=== PATIENT | male | born 1950 | race Caucasian/White ===

== ENCOUNTER 2017-06-16 15:58 | Emergency (ER) | payer MEDICARE, OTHER ==
[~2017-06-16] VITALS: Ht 177.8 cm; Wt 64.9 kg
--- NOTE | 2017-06-16 16:10 | NUR ---
dr elizabeth at bedside for eval.
--- NOTE | 2017-06-16 16:19 | NUR ---
iv line started blood drawn and sent to lab.
--- NOTE | 2017-06-16 16:23 | NUR ---
pt to radiology for abdominal ct scan via [facility].
[2017-06-16] MEDS ORDERED: LORAZEPAM INJ 2 MG/ML VIAL IV ONE (16:30)
[2017-06-16] MEDS ORDERED: LORAZEPAM INJ 2 MG/ML VIAL ONE (16:33)
[2017-06-16 16:38] LABS: BASOPHILS % (AUTO) 0.2 % (0.0-2.0); EOSINOPHILS # (AUTO) 0.1 /CMM (0.0-0.7); EOSINOPHILS % (AUTO) 1.7 % (0.0-6.0); HEMATOCRIT 42 % (39-51); HEMOGLOBIN 14.3 g/dL (13.5-17.5); LYMPHOCYTES # (AUTO) 2.3 /CMM (0.8-4.8); LYMPHOCYTES % (AUTO) 30.6 % (20.0-44.0); MEAN CORPUSCULAR HEMOGLOBIN 30 PG (26.0-33.0); MEAN CORPUSCULAR HGB CONC 34 g/dl (31.0-36.0); MEAN CORPUSCULAR VOLUME 90 fL (80-96); MONOCYTES # (AUTO) 0.4 /CMM (0.1-1.30); MONOCYTES % (AUTO) 5.7 % (2.0-12.0); NEUTROPHILS # (AUTO) 4.6 /CMM (1.8-8.9); NEUTROPHILS % (AUTO) 61.8 % (43.0-81.0); PLATELET COUNT (AUTO) 152 /CMM (150-450); RDW COEFFICIENT OF VARIATION 13.5 (11.5-15.0); RED BLOOD CELL COUNT(AUTO) 4.74 MIL/uL (4.5-6.0); WHITE BLOOD COUNT (AUTO) 7.5 K/uL (4.3-11.0)
[2017-06-16 16:53] LABS: CALCIUM, SERUM 9.6 mg/dL (8.5-10.1); CREATININE 0.8 mg/dL (0.6-1.3); POTASSIUM 4.1 mmol/L (3.5-5.1)
[2017-06-16 16:59] LABS: ALBUMIN 4.2 g/dL (3.4-5.0); BILIRUBIN,DIRECT 0.1 mg/dL (0.0-0.2); BILIRUBIN,TOTAL 0.3 mg/dL (0.2-1.0); TOTAL PROTEIN, SERUM 7.6 g/dL (6.4-8.2)
[2017-06-16] MEDS ORDERED: HYDROMORPHONE INJ 2 MG/ML DISP.SYRIN ONE (17:00)
[2017-06-16] MEDS ORDERED: HYDROMORPHONE 1 MG/1 ML DISP.SYRIN IV ONE (17:00)
[2017-06-16 17:30] LABS: APPEARANCE,URINE Clear (CLEAR); BILIRUBIN,URINE Negative (NEGATIVE); BLOOD, URINE Moderate Ery/uL (NEGATIVE); COLOR,URINE Yellow (YELLOW); KETONES,URINE Trace (NEGATIVE); LEUKOCYTE ESTERASE ,URINE Trace (NEGATIVE); NITRITE, URINE Negative (NEGATIVE); PROTEIN,URINE Negative (NEGATIVE); UGLUCOSE Negative (NEGATIVE); UROBILINOGEN,URINE 0.2 EU/dL (0.2)
[2017-06-16] MEDS ORDERED: MINERAL OIL 133 ML (PYXIS) 1 EA ENEMA RC ONE (17:30)
[2017-06-16 17:43] LABS: BACTERIA,URINE Few /HPF (None Seen); MUCUS,URINE Moderate /LPF (None Seen); SQUAMOUS EPITHELIAL CELL,UR Few /HPF (None Seen)
--- NOTE | 2017-06-16 18:38 | NUR ---
Patient discharged to home in stable condition. Written and verbal after care instructions given. Family verbalizes understanding of instruction.IV removed. Catheter intact and site benign. Pressure and 4x4 applied to site. No bleeding noted.
[2017-06-16 18:39] VITALS: BP 128/87
== END 2017-06-16 18:40 | disposition home or self-care (01) ==
LOC: ER 16:01
DX: K59.00 Constipation, unspecified (principal); E11.9 Type 2 diabetes mellitus without complications; F03.90 Unspecified dementia, unspecified severity, without behavioral disturbance, psychotic disturbance, mood disturbance, and anxiety; I10 Essential (primary) hypertension; N20.0 Calculus of kidney
CPT/HCPCS: 36415; 51702; 74176; 80048; 80076; 81001; 83690; 85025; 96374; 96375; 99285; A4606; J1170; J2060; 81000-TC; Z7610

== ENCOUNTER 2017-09-21 17:13 | Inpatient (IN) | payer MEDICARE, OTHER ==
[~2017-09-21] VITALS: Ht 167.6 cm; Wt 57.2 kg
--- NOTE | 2017-09-21 17:17 | NUR ---
BB FAMILY: DYSURIA, BILATERAL FLANK PAIN. PT CONTRACTED BUE . GOWNED PT PLACED ON MONITOR. AWAITING MD ORDER
[2017-09-21] MEDS ORDERED: IV NS 0.9% 1,000 ML BAG IV ONE (17:30)
[2017-09-21] MEDS ORDERED: HYDROMORPHONE 1 MG/1 ML DISP.SYRIN IV ONE (17:30)
[2017-09-21] MEDS ORDERED: ONDANSETRON HCL/PF 4 MG/2 ML VIAL IVP ONE (17:30)
--- NOTE | 2017-09-21 17:30 | NUR ---
RT CHRISSYT #22 IV ACCESS. BLOOD SAMPLE COLLECTED SENT TO LAB
[2017-09-21] MEDS ORDERED: HYDROMORPHONE INJ 0.5 MG/0.5 ML SYRINGE ONE (17:35)
[2017-09-21] MEDS ORDERED: ONDANSETRON HCL/PF 4 MG/2 ML VIAL ONE (17:35)
[2017-09-21] MEDS ORDERED: QUET50TA PO (18:00)
[2017-09-21] MEDS ORDERED: SITA1TAB2 PO (18:00)
[2017-09-21 18:03] LABS: BASOPHILS % (AUTO) 0.4 % (0.0-2.0); EOSINOPHILS # (AUTO) 0.1 /CMM (0.0-0.7); EOSINOPHILS % (AUTO) 1.2 % (0.0-6.0); HEMATOCRIT 41 % (39-51); LYMPHOCYTES # (AUTO) 1.6 /CMM (0.8-4.8); LYMPHOCYTES % (AUTO) 18.7 % (20.0-44.0); MEAN CORPUSCULAR HEMOGLOBIN 31 PG (26.0-33.0); MEAN CORPUSCULAR HGB CONC 35 g/dl (31.0-36.0); MEAN CORPUSCULAR VOLUME 89 fL (80-96); MONOCYTES # (AUTO) 0.4 /CMM (0.1-1.30); MONOCYTES % (AUTO) 4.8 % (2.0-12.0); NEUTROPHILS # (AUTO) 6.5 /CMM (1.8-8.9); NEUTROPHILS % (AUTO) 74.9 % (43.0-81.0); PLATELET COUNT (AUTO) 152 /CMM (150-450); RDW COEFFICIENT OF VARIATION 13.3 (11.5-15.0); RED BLOOD CELL COUNT(AUTO) 4.54 MIL/uL (4.5-6.0); WHITE BLOOD COUNT (AUTO) 8.7 K/uL (4.3-11.0)
--- NOTE | 2017-09-21 18:10 | NUR ---
PT TAKEN TO CT
[2017-09-21 18:21] LABS: ALANINE AMINOTRANSFERASE 26 U/L (12-78); ALKALINE PHOSPHATASE 99 U/L (46-116); ASPARTATE AMINOTRANSFERASE 23 U/L (15-37); BILIRUBIN,DIRECT 0.1 mg/dL (0.0-0.2); BILIRUBIN,TOTAL 0.8 mg/dL (0.2-1.0); CALCIUM, SERUM 9.6 mg/dL (8.5-10.1); CARBON DIOXIDE 26 mmol/L (21-32); CHLORIDE 105 mmol/L (98-107); CREATININE 0.9 mg/dL (0.6-1.3); GLUCOSE 131 mg/dL (74-106); INR 1.09 (0.87-1.13); POTASSIUM 4.4 mmol/L (3.5-5.1); SODIUM SERUM 143 mmol/L (136-145); TOTAL PROTEIN, SERUM 7.8 g/dL (6.4-8.2); UREA NITROGEN, BLOOD 25 mg/dL (7-18)
[2017-09-21 18:23] LABS: TROPONIN I < 0.017 ng/mL (0.00-0.056)
[2017-09-21 18:51] LABS: APPEARANCE,URINE Clear (CLEAR); BILIRUBIN,URINE Negative (NEGATIVE); BLOOD, URINE Small Ery/uL (NEGATIVE); COLOR,URINE Yellow (YELLOW); KETONES,URINE 40 (NEGATIVE); LEUKOCYTE ESTERASE ,URINE Negative (NEGATIVE); NITRITE, URINE Negative (NEGATIVE); PH,URINE 7.5 (5.0-8.0); PROTEIN,URINE Trace mg/dl (NEGATIVE); UGLUCOSE Negative (NEGATIVE); UROBILINOGEN,URINE 0.2 EU/dL (0.2)
--- NOTE | 2017-09-21 19:03 | NUR ---
GAVE REPORT TO [facility] FOR CHARLEE
[2017-09-21] MEDS ORDERED: KETOROLAC TROMETHAMINE INJ 60 MG/2 ML VIAL IM ONE (19:18)
[2017-09-21] MEDS ORDERED: KETOROLAC TROMETHAMINE INJ 30 MG/ML VIAL IV ONE (19:30)
--- NOTE | 2017-09-21 19:38 | NUR ---
CALLED NURSE SUP AGAIN FOR MEDSURG BED
[2017-09-21 19:53] LABS: BACTERIA,URINE Few /HPF (None Seen); SQUAMOUS EPITHELIAL CELL,UR Few /HPF (None Seen); WBC,URINE 0-2 /HPF (0-3)
--- NOTE | 2017-09-21 20:04 | NUR ---
M/S BED 200
--- NOTE | 2017-09-21 20:08 | NUR ---
REPORT CALLED TO M/S RAUDEL STEWART. WILL TRANSPORT PT TO ROOM 200.
[2017-09-21 20:30] VITALS: BP 114/69
[2017-09-21] MEDS ORDERED: HYDROCODONE/APAP 5/325MG 1 EACH TABLET PO PRN (20:30)
[2017-09-21] MEDS ORDERED: MAGNESIUM HYDROXIDE 30 ML UDC PO PRN (20:30)
[2017-09-21] MEDS ORDERED: DEXTROSE 50%-WATER 50 ML DISP.SYRIN IV PRN (20:30)
[2017-09-21] MEDS ORDERED: ACETAMINOPHEN 325 MG TABLET PO PRN (20:30)
[2017-09-21] MEDS ORDERED: ONDANSETRON HCL/PF 4 MG/2 ML VIAL IVP PRN (20:30)
[2017-09-21] MEDS ORDERED: MINERAL OIL 133 ML (PYXIS) 1 EA ENEMA RC ONE (20:30)
[2017-09-21] MEDS ORDERED: LACTULOSE 10 G/15 ML UDC (PYXIS) PO PRN (20:30)
[2017-09-21] MEDS ORDERED: Z GUARD REMEDY 2 OZ OINT TP PRN (20:30)
--- NOTE | 2017-09-21 21:00 | NUR ---
ADMITTED A 67 Y/O M, AWAKE AND NON-VERBAL. W/ SEVERE ALZ. DIS. BREATHING EVENLY. NO SOB. NAD. AFEBRILE. UNABLE TO STAY STILL IN BED. AND UNABLE TO PROVIDE ANY MEDICAL HX. ALL MEDICAL INFO WERE OBTAINED FROM THE FAMILY AT THE BED SIDE. NEEDS ATTENDED . BED LOW LOCKED. CALL LIGHT WITHIN REACH. WILL CONT TO MONITOR AND WILL F/U W/ MD'S ORDERS.
[2017-09-21] MEDS: IV NS 0.9% 1,000 ML IV PRN (21:43)
[2017-09-21] MEDS: QUETIAPINE FUMARATE 25 MG TABLET PO SCH (21:44)
[2017-09-21] MEDS: CEFTRIAXONE 1 G in IV D5W 50 ML IV SCH (21:44)
[2017-09-21] MEDS: BLOOD SUGAR DIAGNOSTIC 1 EACH STRIP IN SCH (21:49)
[2017-09-21] MEDS: ENOXAPARIN SODIUM 40 MG/0.4 ML DISP.SYRIN SQ SCH (21:55)
--- NOTE | 2017-09-22 00:50 | NUR ---
norco given as ordered per family request for pain as manifested by restless and constant movement in bed. will cont to monitor
--- NOTE | 2017-09-22 04:06 | NUR ---
FAMILY/ OF THE PT AT THE BEDSIDE REPORTED THAT PT HAS NOT BEEN ABLE TO REST AT ALL AND CONSTANTLY MOVING IN BED. REQUESTING MEDICATION TO CALM HIM HIM DOWN. PLACED A CALL TO LOCKSTITCH SHOULDER JOINER AND SPOKE W/ DR SINGH W/ AN ORDER FOR HALDOL 1MG IM X ONE. ALSO IS REQUESTING DNR/DNI STATUS. DISCUSS W/ DR. SINGH AND OBTAINED THE ORDER. RAUDEL SAMUEL WITNESS AND COSIGNED.
[2017-09-22] MEDS ORDERED: HALOPERIDOL LACTATE INJ 5 MG/ML VIAL IM ONE (04:30)
--- NOTE | 2017-09-22 04:34 | NUR ---
HALDOL GIVEN ORDERED FOR AGITATION. WILL CONT TO MONITOR ,
--- NOTE | 2017-09-22 06:17 | NUR ---
PT IN BED W/ FAMILY AT THE BEDSIDE. DOZING INTERMITTENTLY W/ POOR SLEEP PATTERN DURING THE NIGHT. ON ONGOING IVF HYDRATION . F/C IN PLACE DRAINING TEA COLOR URINE. NEEDS ATTENDED. BED LOW LOCKED. CALL LIGHT WITHIN REACH. WILL CONT TO MONITOR AND WILL ENDORSE TO AM SHIFT FOR CHARLEE.
[2017-09-22] MEDS: BLOOD SUGAR DIAGNOSTIC 1 EACH STRIP IN SCH ×4 (06:50→21:25)
--- NOTE | 2017-09-22 07:30 | NUR ---
RN MS NOTES PT IN BED, AWAKE, NON VERBAL, NOT IN DISTRESS, FAMILY AT BEDSIDE, CALL LIGHT WITHIN REACH, F/C IN PLACE AND PATENT, DRAINING WELL WITH TEA COLORED URINE, IV FLUIDS INFUSING WELL, KEPT COMFORTABLE.
[2017-09-22 07:33] LABS: BASOPHILS % (AUTO) 0.6 % (0.0-2.0); EOSINOPHILS # (AUTO) 0.1 /CMM (0.0-0.7); EOSINOPHILS % (AUTO) 1.7 % (0.0-6.0); HEMATOCRIT 37 % (39-51); HEMOGLOBIN 12.8 g/dL (13.5-17.5); LYMPHOCYTES # (AUTO) 1.6 /CMM (0.8-4.8); LYMPHOCYTES % (AUTO) 26.9 % (20.0-44.0); MEAN CORPUSCULAR HEMOGLOBIN 31 PG (26.0-33.0); MEAN CORPUSCULAR HGB CONC 35 g/dl (31.0-36.0); MEAN CORPUSCULAR VOLUME 89 fL (80-96); MONOCYTES # (AUTO) 0.3 /CMM (0.1-1.30); NEUTROPHILS # (AUTO) 3.8 /CMM (1.8-8.9); NEUTROPHILS % (AUTO) 64.8 % (43.0-81.0); PLATELET COUNT (AUTO) 131 /CMM (150-450); RDW COEFFICIENT OF VARIATION 12.9 (11.5-15.0); WHITE BLOOD COUNT (AUTO) 5.8 K/uL (4.3-11.0)
[2017-09-22 07:38] LABS: CALCIUM, SERUM 8.7 mg/dL (8.5-10.1); CREATININE 0.8 mg/dL (0.6-1.3); MAGNESIUM 1.8 mg/dL (1.8-2.4); PHOSPHORUS 3.3 mg/dL (2.5-4.9); POTASSIUM 3.9 mmol/L (3.5-5.1)
[2017-09-22 08:00] VITALS: BP_SYST 105; BP_SYST 148; BP_DIAS 60; BP_DIAS 83
[2017-09-22] MEDS: QUETIAPINE FUMARATE 25 MG TABLET PO SCH ×2 (08:48→17:00)
[2017-09-22] MEDS: METFORMIN 500 MG TABLET PO SCH ×2 (08:48→17:00)
[2017-09-22] MEDS: LINAGLIPTIN 5 MG TABLET PO SCH (08:48)
--- NOTE | 2017-09-22 13:00 | NUR ---
RN MS NOTES PT IN BED, ASLEEP, AROUSABLE BUT UNABLE TO OPEN EYES, NOT IN DISTRESS, NO FACIAL GRIMACING OR MOANING, IV FLUIDS INFUSING WELL, FAMILY AT BEDSIDE, ASSISTED IN TURNING AND REPOSITIONING, KEPT TROLLEY OPERATOR BED.
[2017-09-22 16:00] VITALS: BP 119/68
[2017-09-22] MEDS ORDERED: MINERAL OIL 133 ML (PYXIS) 1 EA ENEMA RC ONE (16:00)
[2017-09-22] MEDS: IV NS 0.9% 1,000 ML IV PRN (16:23)
--- NOTE | 2017-09-22 17:46 | NUR ---
Met with patient Katelynn and spoke with nephew on the phone [facility] [phone] discussed dc planning options. Patient speaks Dominican only, has hx of advanced dementia. Patient lives with spouse/family in the 2nd floor apartment with elevator access. He is totally dependent with adl's, is the main caregiver. He ambulates with a cane and wheelchair at times. Has adequate DME:shower chair, commode, wheelchair and cane. cannot remember previous homehealth services contact. No SNF placement per family, patient will return home upon discharge. Addendum: 09/22/17 at 1748 by REINA LINDA RN Amended: Links added.
--- NOTE | 2017-09-22 18:30 | NUR ---
RN MS NOTES PT IN BED, LETHARGIC, NON VERBAL, NO SHORTNESS OF BREATH, AT BEDSIDE, PT SEEN BY JAIME POLICE CAPTAIN, PLAN OF CARE DISCUSSED WITH FAMILY MEMBERS THROUGH AN RIM ROLLER SETTER, VERBALIZED UNDERSTANDING, PT SEEN BY SHAWNA LOPEZ POLICE CAPTAIN, SPEECH THERAPIST SAW PT BUT UNABLE TO PERFORM EVAL DUE TO PT UNABLE TO PARTICIPATE, KEPT PT NPO ORDERED, ENEMA X1 GIVEN, PERINEAL CARE PROVIDED, TURNED AND REPOSITIONED, F/C DRAINING WELL WITH TEA COLORED URINE, JAIME POLICE CAPTAIN AWARE, KEPT CLEAN AND DRY, NEEDS ATTENDED.
--- NOTE | 2017-09-22 19:30 | NUR ---
RN NOTE; RECEIVED PT IN BED W/ FAMILY AT THE BEDSIDE . BREATHING EVENLY. NO SOB. NAD. SKIN WARM AND DRY. NO OS/S OF PAIN OR DISCOMFORT . F/C IN PLACE DRAINING TEA COLOR URINE. NEEDS ATTENDED. BED LOW LOCKED . CALL LIGHT WITHIN REACH . WILL CONT TO MONITOR.
[2017-09-22 20:00] VITALS: BP 136/87
[2017-09-22] MEDS ORDERED: PEG 3350/NA SULF,BICARB,CL/KCL 4,000 ML BOTTLE PO ONE (20:00)
--- NOTE | 2017-09-22 21:00 | NUR ---
CALLED JOHN GRANDE FENCE INSTALLER AND CLARIFIED THE ORDER FOR GOLYTELY. PER FENCE INSTALLER WE MAY EITHER INSERT THE NG AND START THE PREP TONIGHT OR TOMORROW. DEPENDS ON THE PT'S COMFORT.
[2017-09-22] MEDS: CEFTRIAXONE 1 G in IV D5W 50 ML IV SCH (21:24)
[2017-09-22] MEDS: PANTOPRAZOLE 40 MG VIAL IV SCH (21:25)
[2017-09-22] MEDS: ENOXAPARIN SODIUM 40 MG/0.4 ML DISP.SYRIN SQ SCH (21:25)
--- NOTE | 2017-09-23 | NUR ---
NG TUBE INSERTED AND OBTAINED AN ORDER FOR CXR. WILL F/U W/ THE RESULT FOR PLACEMENT . PT TOLERATED THE PROCEDURE WELL
--- NOTE | 2017-09-23 01:30 | NUR ---
RECEIVED THE CXR RESULTS. NG TUBE NOT IN PLACE. NG WAS REMOVED.
[2017-09-23] MEDS: IV NS 0.9% 1,000 ML IV PRN ×2 (05:26→17:38)
[2017-09-23] MEDS: BLOOD SUGAR DIAGNOSTIC 1 EACH STRIP IN SCH ×4 (06:33→21:33)
[2017-09-23 06:40] LABS: CALCIUM, SERUM 8.6 mg/dL (8.5-10.1); CREATININE 0.7 mg/dL (0.6-1.3); POTASSIUM 3.5 mmol/L (3.5-5.1)
[2017-09-23 08:00] VITALS: BP 150/71
--- NOTE | 2017-09-23 08:30 | NUR ---
RN NOTES RECEIVED PATIENT ASLEEP, NONVERBAL NO S/SX OF DISTRESS NOTED, NO S/SX OF PAIN OR DISCOMFORT. INSERTED NGT PLACEMENT VERIFIED BY 2 NURSES. GASTRIC RESIDUAL NOTED. CXR ORDERED FOR PLACEMENT VERIFICATION. NEEDS ATTENDED, KEPT PATIENT COMFORTABLE, CALL LIGHT WITHIN REACH, WILL CONTINUE TO MONITOR.
[2017-09-23] MEDS: METFORMIN 500 MG TABLET PO SCH ×2 (09:00→16:45)
[2017-09-23] MEDS: QUETIAPINE FUMARATE 25 MG TABLET PO SCH ×2 (09:00→16:45)
[2017-09-23] MEDS: LINAGLIPTIN 5 MG TABLET PO SCH (09:00)
[2017-09-23] MEDS: INSULIN REGULAR, HUMAN 100 UNIT/ML 3 ML VIAL SQ PRN (12:39)
[2017-09-23 16:00] VITALS: BP 134/71
--- NOTE | 2017-09-23 16:50 | NUR ---
RN NOTES RELAYED ABDOMEN X-RAY TO JOHN BOWENS (GI), RECEIVED ORDERS. ORDERS NOTED AND CARRIED OUT.
[2017-09-23] MEDS: METOCLOPRAMIDE HCL 10 MG/2 ML VIAL IV SCH ×2 (17:00→23:00)
[2017-09-23] MEDS ORDERED: MAGNESIUM CITRATE 296 ML BOTTLE PO ONE (17:00)
--- NOTE | 2017-09-23 19:00 | NUR ---
RN NOTES PATIENT ABLE TO OPEN EYES, NON-VERBAL, BREATHING EVEN AND UNLABORED, NGT PATENT AND INTACT, PLACEMENT VERIFIED. CONTINUES ON GOLYTELY FOR BOWEL PREP. PATIENT HAD 2 LOOSE BROWN BM SO FAR. AT BEDSIDE, PATIENT WILL HAVE EGD AND COLONOSCOPY IN AM. TURNED AND REPOSITIONED EVERY 2 HOURS, SKIN CARE RENDERED, Z-GUARD AND MEPILEX. NEEDS ATTENDED AND MET, CALL LIGHT WITHIN REACH, WILL ENDORSE TO ROBOTICS SOFTWARE ENGINEER FOR CHARLEE.
--- NOTE | 2017-09-23 19:30 | NUR ---
MS RN NOTES RECEIVED ON BED,CALM,NON VERBAL,NGT IN PLACE.PRESENT IVF NS 75ML/HR RATE INFUSING VIA IV ON RIGHT HAND.WITH VALLADARES CATH IN PLACE DRAINING TEA COLORED URINE.HOD ELEVATED.NPO POST MIDNIGHT FOR EGD/COLONOSCOPY TOMORROW.VISITOR AT BEDSIDE.WILL CONTINUE TO MONITOR STATUS.DNR/DNI.
[2017-09-23 20:00] VITALS: BP 119/67
--- NOTE | 2017-09-23 20:30 | NUR ---
MS RN NOTES GOLYTELY 120ML GIVEN VIA NGT FOR BOWEL PREP,TOLERATED WELL.WILL MONITOR FOR BM.
[2017-09-23 21:00] VITALS: BP 119/67
[2017-09-23] MEDS: ENOXAPARIN SODIUM 40 MG/0.4 ML DISP.SYRIN SQ SCH (21:00)
--- NOTE | 2017-09-23 21:00 | NUR ---
MS RN NOTES LOVENOX 40MG SQ HELD FOR LOW PLATELETS 131,GOING FOR EGD/COLONOSCOPY TOMORROW
[2017-09-23] MEDS: PANTOPRAZOLE 40 MG VIAL IV SCH (21:06)
[2017-09-23] MEDS: CEFTRIAXONE 1 G in IV D5W 50 ML IV SCH (21:07)
--- NOTE | 2017-09-23 21:30 | NUR ---
MS RN NOTES ACCU-CHECK BLOOD SUGAR CHECK 113,NO INSULIN COVERAGE.
--- NOTE | 2017-09-23 23:00 | NUR ---
MS RN NOTES HAD ONE LARGE BM THIS TIME.GOLYTELY ALMOST DONE.
[2017-09-24] MEDS ORDERED: NA PHOS,M-B/NA PHOS,DI-BA 1 EA ENEMA RC PRN (04:00)
--- NOTE | 2017-09-24 04:55 | NUR ---
MS RN NOTES STILL DIRTY,FLEETS ENEMA 1TUBE ADMINISTERED
[2017-09-24] MEDS ORDERED: NA PHOS,M-B/NA PHOS,DI-BA 1 EA ENEMA RC ONE ×2 (05:30→06:00)
[2017-09-24] MEDS: BLOOD SUGAR DIAGNOSTIC 1 EACH STRIP IN SCH ×4 (05:43→21:28)
--- NOTE | 2017-09-24 06:00 | NUR ---
MS RN NOTES HAD BM FROM FIRST TUBE OF FLEETS ENEMA,STILL DIRTY,GIVEN ANOTHER TUBE OF FLEETS ENEMA,STILL HAVING BROWN STOOL,OR NURSE MADE AWARE,DESPITE GOLYTELY AND FLEETS ENEMA X 2.IN NO ACUTE DISTRESS, AT BEDSIDE.AWAITING BY OR TECH FOR THE PROCEDURE.WILL ENDORSE TO DAY NURSE FOR CHARLEE.
[2017-09-24] MEDS: IV NS 0.9% 1,000 ML IV PRN (06:13)
[2017-09-24 08:00] VITALS: BP 128/68
--- NOTE | 2017-09-24 08:00 | NUR ---
MS 2 RN AM NOTES PATIENT ABLE TO OPEN EYES, NON-VERBAL, BREATHING EVEN AND UNLABORED, NGT PATENT AND INTACT, PLACEMENT VERIFIED. PATIENT HAD 2 LOOSE BROWN BM LAST NIGHT STILL NOT CLEAR -OR NURSE AND MD AWARE. AT BEDSIDE, PATIENT WILL HAVE EGD AND COLONOSCOPY IN AM.ON NPO. TURNED AND REPOSITIONED EVERY 2 HOURS, SKIN CARE RENDERED, Z-GUARD AND MEPILEX. NEEDS ATTENDED AND MET, CALL LIGHT WITHIN REACH,
--- NOTE | 2017-09-24 08:30 | NUR ---
SUCTIONED THICK WHITE SECRETIONS NEEDED.NO SOB OR S/S OF DISTRESS NOTED.
[2017-09-24] MEDS: METFORMIN 500 MG TABLET PO SCH ×2 (08:37→16:46)
[2017-09-24] MEDS: LINAGLIPTIN 5 MG TABLET PO SCH (08:38)
[2017-09-24] MEDS: QUETIAPINE FUMARATE 25 MG TABLET PO SCH ×2 (08:38→16:47)
--- NOTE | 2017-09-24 08:39 | NUR ---
PT WAS PICKED UP FOR EGD AND COLONOSCOPY PROCEDURE BY CHICA WITH STABLE V/S.NO S/S OF PAIN OR DISTRESS.
[2017-09-24] MEDS ORDERED: SIMETHICONE SUSP 40 MG/0.6 ML BOTTLE ONE (10:05)
--- NOTE | 2017-09-24 10:50 | NUR ---
PT CAME BACK FROM [facility] S/P EGD AND COLONOSCOPY PROCEDURE WITH STABLE V/S.ON O2 AT 2L/MIN VIA NC WITH O2 SAT OF 96%.WILL CONTINUE TO MONITOR.NO S/S OF SOB OR DISCOMFORT.VALLADARES CATH INTACT DRAINING YELLOW HERMILA URINE. AT BEDSIDE.WILL CONTINUE TO MONITOR.
[2017-09-24] MEDS: METOCLOPRAMIDE HCL 10 MG/2 ML VIAL IV SCH ×3 (11:00→23:10)
--- NOTE | 2017-09-24 11:00 | NUR ---
WILL ASK KWAN SANDOVAL IF WE ARE GOING TO DC THE NGT AND PT CAN EAT OR CHANGE HIS IVF TO D5NS.
[2017-09-24] MEDS: HYDROMORPHONE INJ 0.5 MG/0.5 ML SYRINGE IV PRN (12:59)
[2017-09-24] MEDS: IV D5/ 0.9% NACL 1,000 ML IV SCH (15:53)
[2017-09-24 16:00] VITALS: BP_SYST 128; BP_SYST 148; BP_DIAS 68; BP_DIAS 81
--- NOTE | 2017-09-24 18:00 | NUR ---
PT SLEEPING COMFORTABLY IN BED WITH NGT TO LOW INTERMITTENT SUCTION.SUCTIONED WHITE SECRETIONS FREQUENTLY.ORAL CARE RENDERED.WITH ONGOING IVF OF D5NS AT 75 ML/HR INFUSING WELL.TURNED EVERY TO HRS. AT BEDSIDE.
[2017-09-24] MEDS: INSULIN REGULAR, HUMAN 100 UNIT/ML 3 ML VIAL SQ PRN (19:00)
--- NOTE | 2017-09-24 19:30 | NUR ---
MS2/RN RECEIVE PATIENT APPEAR SLEEPING, AROUSABLE, APPEAR COMFORTABLE, NO DISTRESS NOTED, NGT TO LIS, WILL MONITOR.
[2017-09-24 20:00] VITALS: BP 94/49
[2017-09-24] MEDS: CEFTRIAXONE 1 G in IV D5W 50 ML IV SCH (21:28)
[2017-09-24] MEDS: PANTOPRAZOLE 40 MG VIAL IV SCH (21:29)
[2017-09-24] MEDS: ENOXAPARIN SODIUM 40 MG/0.4 ML DISP.SYRIN SQ SCH (21:30)
[2017-09-25] MEDS: IV D5/ 0.9% NACL 1,000 ML IV SCH ×2 (04:36→18:14)
[2017-09-25] MEDS: METOCLOPRAMIDE HCL 10 MG/2 ML VIAL IV SCH ×4 (04:36→22:38)
--- NOTE | 2017-09-25 05:00 | NUR ---
MS2/RN MORNING CARE DONE, TOTAL LINEN CHANGE RENDERED, GOOD SKIN CARE DONE, F/C CARE DONE. MOUTH CARE DONE. REPOSITIONED TO COMFORT. WILL CONTINUE TO MONITOR.
[2017-09-25 06:25] LABS: CALCIUM, SERUM 8.6 mg/dL (8.5-10.1); CREATININE 0.8 mg/dL (0.6-1.3); POTASSIUM 3.3 mmol/L (3.5-5.1)
--- NOTE | 2017-09-25 06:59 | NUR ---
MS2/RN APPEAR SLEEPING, APPEAR COMFORTABLE, NO DISTRESS NOTED, ALL NEEDS ATTENDED AT THIS TIME. WILL CONTINUE TO MONITOR.
[2017-09-25] MEDS: LINAGLIPTIN 5 MG TABLET PO SCH (08:10)
[2017-09-25] MEDS: METFORMIN 500 MG TABLET PO SCH ×2 (08:10→16:28)
[2017-09-25] MEDS: QUETIAPINE FUMARATE 25 MG TABLET PO SCH ×3 (08:10→23:54)
--- NOTE | 2017-09-25 08:13 | NUR ---
ms/rn notes received patient in bed mildly distressed, agitated and restless. Patient extremely congested, crackling on auscultation, on NG tube to right nare connected to intermittent suction. on 02 via nc at 2lpm 02 de-saturating d/t over production of secretions. patient npo status, iv fluids of d5ns at 75cc/hr infusing to right wrist 22g intact and patent. pending swallow eval and kub. RT at bedside performing nasotracheal deep suctioning. 02 saturation post suction, 91. patient will be monitored closely and accordingly
--- NOTE | 2017-09-25 08:15 | NUR ---
MS/RN NOTES PATIENT NOTED WITH HIGH GRADE FEVER 100.4, ADMINISTERED TYLENOL 650MG SUPPOSITORY, APPLIED COOLING MEASURES. RE-OBTAINED TEMP, 98.9. GEAR HOBBER OPERATOR JAIME NOTIFIED, WILL CONTINUE TO MONITOR.
[2017-09-25] MEDS ORDERED: ACETAMINOPHEN 650 MG/SUPP.RECT RC PRN (08:30)
[2017-09-25] MEDS: HYDROMORPHONE INJ 0.5 MG/0.5 ML SYRINGE IV PRN (08:30)
[2017-09-25] MEDS: BLOOD SUGAR DIAGNOSTIC 1 EACH STRIP IN SCH ×4 (08:38→22:13)
--- NOTE | 2017-09-25 08:40 | NUR ---
MS/RN NOTES PATIENT APPEARS IN PAIN EVIDENCED BY FACIAL GRIMACING. PATIENT CONTINUOUSLY MOANING APPEARS RESTLESS AND AGITATED. PER MD ORDER ADMINISTERED 0.25MG DILAUDID VIA IV PUSH. WILL MONITOR FOR EFFECTIVENESS.
--- NOTE | 2017-09-25 09:00 | NUR ---
MS/RN NOTES MORNING ORAL HYPOGLYCEMICS HELD, INSULIN HELD DUE TO NPO STATUS. PATIENT LETHARGIC, DISTRESSED. PER CELL BIOLOGY SCIENTIST ORDERS HOLD HYPOGLYCEMICS AND CONTINUE WITH DEXTROSE FLUIDS. WILL CONTINUE TO MONITOR PT FOR HYPO/HYPERGLYCEMICS.
--- NOTE | 2017-09-25 09:02 | NUR ---
ms/rn notes patient's NG tube out, found tube rolled and twisted in mouth. removed ng tube and disposed it properly. Patient appears comfortable post ng removal. will re-insert and monitor.
[2017-09-25 10:39] LABS: BASOPHILS % (AUTO) 0.3 % (0.0-2.0); EOSINOPHILS % (AUTO) 0.3 % (0.0-6.0); HEMATOCRIT 42 % (39-51); LYMPHOCYTES # (AUTO) 0.8 /CMM (0.8-4.8); LYMPHOCYTES % (AUTO) 14.9 % (20.0-44.0); MEAN CORPUSCULAR HEMOGLOBIN 31 PG (26.0-33.0); MEAN CORPUSCULAR HGB CONC 34 g/dl (31.0-36.0); MEAN CORPUSCULAR VOLUME 91 fL (80-96); MONOCYTES # (AUTO) 0.2 /CMM (0.1-1.30); MONOCYTES % (AUTO) 4.3 % (2.0-12.0); NEUTROPHILS # (AUTO) 4.5 /CMM (1.8-8.9); NEUTROPHILS % (AUTO) 80.2 % (43.0-81.0); PLATELET COUNT (AUTO) 135 /CMM (150-450); RDW COEFFICIENT OF VARIATION 12.5 (11.5-15.0); RED BLOOD CELL COUNT(AUTO) 4.61 MIL/uL (4.5-6.0); WHITE BLOOD COUNT (AUTO) 5.6 K/uL (4.3-11.0)
[2017-09-25] MEDS ORDERED: POTASSIUM CL. PREMIX PERIPHER. 50 ML IV ONE ×2 (11:00→13:30)
[2017-09-25] MEDS ORDERED: IV NS 0.9% 500 ML IV ONE (11:00)
--- NOTE | 2017-09-25 15:01 | NUR ---
MS/RN NOTES HIGH SCHOOL BAND TEACHER JAIME AT BEDSIDE, PER ASSESSMENT RE-EVAL, RE-INSERTION OF NG TUBE NOT REQUIRED.
[2017-09-25 16:00] VITALS: BP 121/78
[2017-09-25] MEDS ORDERED: AZITHROMYCIN 500 MG in IV D5W 250 ML IV SCH (17:00)
--- NOTE | 2017-09-25 19:00 | NUR ---
MS2/RN ASSISTED RAUDEL GOLDSTEIN TO INSERT NGT ORDERED. SUCCESSFULLY INSERTED WITH POSITIVE PLACEMENT CONFIRMED BY AND TRISTON. STAT CXR WAS ORDERED TO CONFIRM PLACEMENT.
--- NOTE | 2017-09-25 19:15 | NUR ---
ms/rn notes NG tube re-inserted into right nare using aseptic technique, verified placement with lieutenant shift supervisor nurse and ordered stat chest xray. per analytics analyst order patient to be started on ngtube feeding.
--- NOTE | 2017-09-25 19:22 | NUR ---
ms/rn notes patient in bed appears in moderate distress at bedside. no significant changes, patient remained afebrile. all due medications given, all needs met and attended. repositioned every 2 hours as tolerated. iv fluids infusing well. will discontinue once feedings begin. will endorse care to supervisor paint department for juan
[2017-09-25] MEDS: PIPERACILLIN /TAZOBACTAM 3.375 G in IV D5W 50 ML IV SCH ×2 (19:46→23:56)
[2017-09-25 20:00] VITALS: BP 129/66
[2017-09-25] MEDS ORDERED: MORPHINE SULFATE INJ 2 MG/ML DISP.SYRIN IV PRN (20:00)
--- NOTE | 2017-09-25 20:08 | NUR ---
MS2/RN PATIENT NOTED TO HAVE INCREASING RESTLESSNESS AND MOANING, DILAUDID WAS GIVEN ORDERED. WILL CONTINUE TO MONITOR.
[2017-09-25] MEDS: GLYTROL 1,000 ML BAG GT PRN (21:17)
[2017-09-25] MEDS: PANTOPRAZOLE 40 MG VIAL IV SCH (21:34)
[2017-09-25] MEDS: ENOXAPARIN SODIUM 40 MG/0.4 ML DISP.SYRIN SQ SCH (21:39)
[2017-09-25] MEDS: ZOLPIDEM TARTRATE 5 MG TABLET PO PRN (21:43)
--- NOTE | 2017-09-25 21:55 | NUR ---
MS2/RN PATIENT STILL MILDLY RESTLESS, AMBIEN 5 MG GT WAS GIVEN ORDERED PER 'S REQUEST. WILL CONTINUE TO MONITOR.
[2017-09-25] MEDS: INSULIN REGULAR, HUMAN 100 UNIT/ML 3 ML VIAL SQ PRN (22:12)
--- NOTE | 2017-09-25 23:54 | NUR ---
MS2/RN PATIENT IS NOT ABLE TO GET GOOD SLEEP, RESTLESS, UPON REVIEW OF HIS MEDS, SEROQUEL WAS NOT GIVEN FOR 3 DAYS NOW, SEROQUEL WAS GIVEN BY GT UNSCHEDULED ADMINISTRATION. WILL CONTINUE TO MONITOR.
--- NOTE | 2017-09-26 00:17 | NUR ---
MS2/RN CHECK GT PLACEMENT, POSITIVE PLACEMENT WAS NOTED.
--- NOTE | 2017-09-26 00:52 | NUR ---
MS2/RN PATIENT IS SLEEPING AT THIS TIME, AROUSABLE, APPEAR COMFORTABLE, NO SIGNS OF DISTRESS NOTED, HOB ELEVATED, WILL CONTINUE TO MONITOR.
[2017-09-26 04:00] VITALS: BP 140/69
[2017-09-26] MEDS: PIPERACILLIN /TAZOBACTAM 3.375 G in IV D5W 50 ML IV SCH ×3 (06:18→17:57)
[2017-09-26] MEDS: METOCLOPRAMIDE HCL 10 MG/2 ML VIAL IV SCH (06:18)
[2017-09-26] MEDS: INSULIN REGULAR, HUMAN 100 UNIT/ML 3 ML VIAL SQ PRN ×3 (06:22→21:35)
[2017-09-26] MEDS: IV D5/ 0.9% NACL 1,000 ML IV SCH (07:00)
--- NOTE | 2017-09-26 07:04 | NUR ---
MS2/RN PATIENT SLEEPING AT THIS TIME, APPEAR COMFORTABLE, NO DISTRESS NOTED, CALL LIGHT IN REACH. NGT FEEDING INFUSING, NO RESIDUAL NOTED, HOB ELEVATED, ALL NEEDS ATTENDED AT THIS TIME. WILL CONTINUE TO MONITOR.
--- NOTE | 2017-09-26 07:30 | NUR ---
AM RN NOTE Received patient lying in the bed with eyes closed. No SOB noted resp even and non-labored. Continue on NGT feeding as ordered, no residual noted. On IV fluids as ordered. Will continue to monitor.
[2017-09-26 08:00] VITALS: BP 131/68
[2017-09-26] MEDS: LINAGLIPTIN 5 MG TABLET PO SCH (08:05)
[2017-09-26] MEDS: BLOOD SUGAR DIAGNOSTIC 1 EACH STRIP IN SCH ×4 (08:05→21:28)
[2017-09-26] MEDS: QUETIAPINE FUMARATE 25 MG TABLET PO SCH ×2 (08:05→17:57)
[2017-09-26] MEDS: METFORMIN 500 MG TABLET PO SCH ×2 (08:05→17:57)
--- NOTE | 2017-09-26 09:10 | NUR ---
AM RN NOTE Ok to use NGT for meds per Dane CLEARANCE CENTER MANAGER, order noted and carried out.
--- NOTE | 2017-09-26 09:14 | NUR ---
AM RN NOTE D/C D5 NS IV fluids per Dane MARKET RESEARCH WORKER, order noted and carried out.
[2017-09-26] MEDS: DOCUSATE SODIUM LIQ 100 MG/10 ML UDC GT SCH ×2 (09:32→17:57)
[2017-09-26] MEDS: METOCLOPRAMIDE HCL 10 MG/10 ML UDC GT SCH ×2 (14:00→21:27)
--- NOTE | 2017-09-26 14:44 | NUR ---
AM RN NOTE Reglan no available per pharmacy ([facility]).
--- NOTE | 2017-09-26 15:30 | NUR ---
AM RN NOTE Pt lying in his bed, noted with body temp 99.0 cooling measures done. Will continue to monitor. Suctioned x1 due to secretion but no output.
--- NOTE | 2017-09-26 16:00 | NUR ---
AM RN NOTE Body temp 98.0. Will continue to monitor.
[2017-09-26] MEDS: GLYTROL 1,000 ML BAG GT PRN (17:57)
--- NOTE | 2017-09-26 18:41 | NUR ---
AM RN NOTE Pt resting in his bed, no acute distress noted. Cont on NGT feeding with no residual. On IV ATB, site intact and patent. F/C intact and draining dark yellow colored urine. Will continue to monitor. Family at bedside, requesting for MD to order another swallow eval. Endorsed in 24 hr report. Will endorse care to next shift.
--- NOTE | 2017-09-26 19:10 | NUR ---
MS/RN OPENING NOTES PT RECEIVED RESTING IN BED. AWAKE, NON-VERBAL. FAMILY AT BEDSIDE. NGT RNNUNG GLYTROL AT 50ML/HR. IV TO RIGHT WRIST PATENT AND INTACT. VALLADARES IN PLACE AND DRAINING TO GRAVITY. FAMILY REQUESTING FOR SWALLOW EVAL AND TO BE PRESENT DURING EVAL. BED IN LOW/LOCKED POSITION WITH CALL LIGHT IN REACH. SIDE RAISL UPX2 WILL CONTINUE TO MONITOR
[2017-09-26 20:00] VITALS: BP 139/67
[2017-09-26] MEDS: ZOLPIDEM TARTRATE 5 MG TABLET PO PRN (21:28)
[2017-09-26] MEDS: PANTOPRAZOLE 40 MG VIAL IV SCH (21:28)
[2017-09-26] MEDS: ENOXAPARIN SODIUM 40 MG/0.4 ML DISP.SYRIN SQ SCH (21:28)
[2017-09-27] MEDS: PIPERACILLIN /TAZOBACTAM 3.375 G in IV D5W 50 ML IV SCH ×5 (00:42→23:27)
[2017-09-27] MEDS ORDERED: ACETAMINOPHEN 650 MG/20.3 ML UDC PO PRN (01:00)
[2017-09-27] MEDS ORDERED: ACETAMINOPHEN 325 MG TABLET PO PRN (01:00)
[2017-09-27] MEDS ORDERED: ACETAMINOPHEN 650 MG/20.3 ML UDC NG PRN (01:00)
[2017-09-27 04:00] VITALS: BP 132/70
[2017-09-27] MEDS: METOCLOPRAMIDE HCL 10 MG/10 ML UDC GT SCH ×3 (05:52→23:24)
--- NOTE | 2017-09-27 06:46 | NUR ---
MS/RN NOTES GLUCOMETER MACHINES NOT WORKING, UNABLE TO CHECK BLOOD SUGARS VIA ACCUCHECK. STAT RANDOM GLUCOSE ORDERED. NO S/S OF HYPO/HYPERGLYCEMIA, WILL CONTINUE TO MONITOR
--- NOTE | 2017-09-27 07:30 | NUR ---
RN MS NOTES PT IN BED, ASLEEP, NO SIGN OF PAIN OR DISTRESS, BREATHING PATTERN NORMAL AND NOT LABORED, GT FEEDING INFUSING WELL, FAMILY AT BEDSIDE, CALL LIGHT WITHIN REACH, KEPT WARM AND COMFORTABLE.
--- NOTE | 2017-09-27 07:30 | NUR ---
MS/RN CLOSING NOTES PT RESTING IN BED. NON-VERBAL, SLEPT INTERMITTENTLY THROUGHOUT THE NIGHT. AT BEDSIDE. NGT RUNNUNG GLYTROL AT 50ML/HR, NO RESIDUALS NOTED. OCCASIONAL MOANING DURING SHIFT, TYLENOL PROVIDED PRN. IV TO RIGHT WRIST PATENT AND INTACT. VALLADARES IN PLACE AND DRAINING TO GRAVITY. FAMILY REQUESTING FOR SWALLOW EVAL AND TO BE PRESENT DURING EVAL. BED IN LOW/LOCKED POSITION WITH CALL LIGHT IN REACH. SIDE RAILS UPX2. TURNED/REPOSITIONED PT Q2H. ENDORSED TO DAY SHIFT RN CHARLEE.
[2017-09-27 08:00] VITALS: BP 150/84
[2017-09-27] MEDS: METFORMIN 500 MG TABLET PO SCH ×2 (08:25→17:13)
[2017-09-27] MEDS: BLOOD SUGAR DIAGNOSTIC 1 EACH STRIP IN SCH ×4 (08:25→23:25)
[2017-09-27] MEDS: LINAGLIPTIN 5 MG TABLET PO SCH (08:26)
[2017-09-27] MEDS: QUETIAPINE FUMARATE 25 MG TABLET PO SCH ×2 (08:26→17:13)
[2017-09-27 08:34] LABS: BASOPHILS % (AUTO) 0.2 % (0.0-2.0); EOSINOPHILS # (AUTO) 0.2 /CMM (0.0-0.7); HEMATOCRIT 34 % (39-51); HEMOGLOBIN 11.6 g/dL (13.5-17.5); LYMPHOCYTES # (AUTO) 1.2 /CMM (0.8-4.8); MEAN CORPUSCULAR HEMOGLOBIN 31 PG (26.0-33.0); MEAN CORPUSCULAR HGB CONC 34 g/dl (31.0-36.0); MEAN CORPUSCULAR VOLUME 90 fL (80-96); MONOCYTES # (AUTO) 0.4 /CMM (0.1-1.30); NEUTROPHILS # (AUTO) 5.5 /CMM (1.8-8.9); NEUTROPHILS % (AUTO) 75.8 % (43.0-81.0); PLATELET COUNT (AUTO) 144 /CMM (150-450); RED BLOOD CELL COUNT(AUTO) 3.77 MIL/uL (4.5-6.0); WHITE BLOOD COUNT (AUTO) 7.3 K/uL (4.3-11.0)
[2017-09-27 08:42] LABS: CALCIUM, SERUM 7.7 mg/dL (8.5-10.1); CREATININE 0.7 mg/dL (0.6-1.3); POTASSIUM 3.3 mmol/L (3.5-5.1)
[2017-09-27] MEDS: DOCUSATE SODIUM LIQ 100 MG/10 ML UDC GT SCH ×2 (10:04→17:12)
[2017-09-27] MEDS: INSULIN REGULAR, HUMAN 100 UNIT/ML 3 ML VIAL SQ PRN ×2 (11:46→17:24)
[2017-09-27] MEDS: POTASSIUM CL. PREMIX PERIPHER. 50 ML IV SCH ×2 (12:34→14:08)
--- NOTE | 2017-09-27 13:16 | NUR ---
RN MS NOTES PT IN BED, RESTING, NO SIGN OF DISTRESS, NO SIGN OF PAIN, LETHARGIC, SPOKE WITH FAMILY MEMBER CT OVER THE PHONE, FAMILY STILL NOT AGREEING FOR PEG PLACEMENT FOR PATIENT, JOHN BOWENS INFORMED, SPOKE WITH PT'S ON THE PHONE, EXPLAINED RISKS AND BENEFITS WELL IMPORTANCE OF THE PROCEDURE, FAMILY STILL REFUSED, NURSING AUTOMATIC EMBROIDERY MACHINE TENDER INFORMED.
[2017-09-27 16:00] VITALS: BP 130/70
[2017-09-27] MEDS: GLYTROL 1,000 ML BAG GT PRN (17:25)
--- NOTE | 2017-09-27 18:30 | NUR ---
RN MS NOTES PT IN BED, RESTING, RESPIRATIONS NORMAL, NO SIGN OF PAIN OR DISTRESS, CALL LIGHT WITHIN REACH, FAMILY AT BEDSIDE, NGT FEEDING INFUSING WELL, F/C DRAINING WELL, PM MEDS GIVEN ORDERED, TURNED AND REPOSITIONED Q2 HOURS, ALL NEEDS ATTENDED.
--- NOTE | 2017-09-27 19:30 | NUR ---
RN OPENING NOTES RECEIVED REPORT FROM ANGLE QUINN. FOUND Pt AWAKE, RESTING IN BED. FAMILY VISITING AT BEDSIDE. Pt IS NON-VERBAL. VALLADARES CATHETER IN PLACE. NGT ON RT NARE. ON GLYTROL @50ML/HR. IV ACCESS ON R WRIST #22G,SL. SAFETY MEASURES IN PLACE. BED LOW, LOCKED, HOB ELEVATED, SIDE RAILS UP, CALL LIGHT AND BEDSIDE TABLE WITHIN REACH. WILL CONTINUE TO MONITOR Pt THROUGHOUT THE NIGHT FOR SAFETY.
--- NOTE | 2017-09-27 19:35 | NUR ---
RN NOTES Pt WAS COUGHING. SOUNDED CONGESTED. DID ORAL SUCTIONING TO CLEAR SECRETIONS IN MOUTH.
[2017-09-27 20:00] VITALS: BP 126/71
[2017-09-27 20:15] VITALS: BP 126/71
--- NOTE | 2017-09-27 22:00 | NUR ---
HS ACCUCHECK BG 136. ADMINISTERED 2UN OF INSULIN PER SLIDING SCALE.
[2017-09-27] MEDS: PANTOPRAZOLE 40 MG VIAL IV SCH (23:25)
[2017-09-27] MEDS: ENOXAPARIN SODIUM 40 MG/0.4 ML DISP.SYRIN SQ SCH (23:26)
[2017-09-28] MEDS: INSULIN REGULAR, HUMAN 100 UNIT/ML 3 ML VIAL SQ PRN ×3 (00:12→12:11)
[2017-09-28] MEDS: PIPERACILLIN /TAZOBACTAM 3.375 G in IV D5W 50 ML IV SCH ×2 (05:38→12:14)
[2017-09-28] MEDS: METOCLOPRAMIDE HCL 10 MG/10 ML UDC GT SCH ×2 (05:38→14:38)
[2017-09-28] MEDS: BLOOD SUGAR DIAGNOSTIC 1 EACH STRIP IN SCH ×2 (05:46→12:11)
--- NOTE | 2017-09-28 06:29 | NUR ---
AC ACCUCHECK. BG 200 ADMINISTERED 3UN OF INSULIN PER SLIDING SCALE.
--- NOTE | 2017-09-28 06:30 | NUR ---
RN CLOSING NOTES NO SIGNIFICANT CHANGES IN Pt's CONDITION. Pt IN STABLE CONDITION AT THIS TIME. VS STABLE. NO S/S OF ACUTE DISTRESS NOTED DURING THE NIGHT. ALL NEEDS MET AND ATTENDED TO. SAFETY MEASURES IN PLACE. WILL ENDORSE TO DAYSHIFT RN FOR Pt's CHARLEE.
[2017-09-28 06:57] LABS: CALCIUM, SERUM 8.7 mg/dL (8.5-10.1); CREATININE 0.7 mg/dL (0.6-1.3); POTASSIUM 3.4 mmol/L (3.5-5.1)
[2017-09-28 08:00] VITALS: BP 139/81
--- NOTE | 2017-09-28 08:00 | NUR ---
MS RN NOTES PATIENT IN BED RESTING NOTED WITH NG TUBE IN PACE INTACT PATENT, PLACEMENT CHECKED. AT BEDSIDE. PATIENT LETHARGIC OPENS EYES TO PAINFUL STIMULI. PATIENT APPEARS CONFUTABLE. WITH VALLADARES INTACT PATENT. DRAINING YELLOW CLEAR URIN. BED IN LOW LOCKED POSITION. CALL LIGHT WITHIN REACH. WILL CONTINUE TO MONITOR.
[2017-09-28] MEDS ORDERED: FUROSEMIDE 40 MG/4 ML VIAL IV ONE (09:00)
[2017-09-28] MEDS ORDERED: FUROSEMIDE SOLN 40 MG/5 ML UDC GT ONE (09:00)
[2017-09-28] MEDS: QUETIAPINE FUMARATE 25 MG TABLET PO SCH (09:00)
[2017-09-28] MEDS ORDERED: POTASSIUM CHLORIDE 20 MEQ TAB.PRT.SR PO SCH (10:00)
--- NOTE | 2017-09-28 10:00 | NUR ---
MS RN NOTES PATIENT SEEN AND EVALUATED BY ST, PER ST RECOMMENDATION PATIENT IS NOT SAFE TO HAVE ORAL INTAKE AT THIS MOMENT. TEACHING PROVIDED TO MULTIPLE FAMILY MEMBERS. PATIENTS FAMILY REFUSES G-TUBE INSERTION . REQUESTS DISCHARGE TO HOME WITH HOSPICE. EXECUTIVE TALENT ACQUISITION CONSULTANT MADE AWARE ALSO JAIME SAEZ NOTIFIED.
[2017-09-28] MEDS: METFORMIN 500 MG TABLET PO SCH (10:41)
[2017-09-28] MEDS: LINAGLIPTIN 5 MG TABLET PO SCH (10:41)
[2017-09-28] MEDS: DOCUSATE SODIUM LIQ 100 MG/10 ML UDC GT SCH (10:42)
--- NOTE | 2017-09-28 15:00 | NUR ---
MS RN NOTES PATIENTS VALLADARES REMOVED CATHETER REMOVED, ALSO NG TUBE REMOVED TOLERATED WELL . WAITING FOR DISCHARGE HOME WITH HOSPICE.
--- NOTE | 2017-09-28 15:30 | NUR ---
MS RN NOTES PATIENT DISCHARGED HOME WITH TO HOSPICE CARE. PATIENT CONFUSED. ABLE TO OPEN EYES TO NAME. NO SOB OR ACUTE DISTRESS NOTED. EDUCATIONS PROVIDED TO PATIENTS FAMILY VERBALIZED UNDERSTANDING. PATIENTS KEPT COMFORTABLE. DISCHARGED TO HOSPICE. PATIENTS FAMILY REFUSED PICTURES STATING THEY WANT HIM TO STAY COMFORTABLE. PATIENT TRANSFERRED TO HOME VIA AMBULANCE.
== END 2017-09-28 15:30 | disposition hospice, home (50) | DRG 383 ==
LOC: ER 17:14 → MEDSG2 20:08
PROVIDERS: ADMIT Nurse Practitioner Acute Care; ATTEND Nurse Practitioner Acute Care
PROC: 0DBM8ZZ Excision of Descending Colon, Via Natural or Artificial Opening Endoscopic (ICD-10-PCS; 2017-09-24)
PROC: 0DB68ZX Excision of Stomach, Via Natural or Artificial Opening Endoscopic, Diagnostic (ICD-10-PCS; principal; 2017-09-24 09:40)
PROC: 0DBH8ZZ Excision of Cecum, Via Natural or Artificial Opening Endoscopic (ICD-10-PCS; 2017-09-24 09:40)
DX: K27.9 Peptic ulcer, site unspecified, unspecified as acute or chronic, without hemorrhage or perforation (principal); G93.40 Encephalopathy, unspecified; J96.01 Acute respiratory failure with hypoxia; J69.0 Pneumonitis due to inhalation of food and vomit; N17.9 Acute kidney failure, unspecified; E87.0 Hyperosmolality and hypernatremia; K56.7 Ileus, unspecified; N39.0 Urinary tract infection, site not specified; R13.10 Dysphagia, unspecified; K59.00 Constipation, unspecified; G30.9 Alzheimer's disease, unspecified; F02.80 Dementia in other diseases classified elsewhere, unspecified severity, without behavioral disturbance, psychotic disturbance, mood disturbance, and anxiety; E86.1 Hypovolemia; I10 Essential (primary) hypertension; Z66 Do not resuscitate; Z51.5 Encounter for palliative care; R62.7 Adult failure to thrive; K64.8 Other hemorrhoids; E87.6 Hypokalemia; E11.9 Type 2 diabetes mellitus without complications; N20.0 Calculus of kidney; K29.70 Gastritis, unspecified, without bleeding; D12.0 Benign neoplasm of cecum; K63.5 Polyp of colon; Z79.84 Long term (current) use of oral hypoglycemic drugs
CPT/HCPCS: 36415; 71045-TC; 74018; 80048-TC; 80061-TC; 80076-TC; 81000-TC; 82945-TC; 82962-TC; 83605-TC; 83735-TC; 84100-TC; 84484-TC; 85025-TC; 85730-TC; 87040-TC; 87081-TC; 87086-TC; 88305-TC; 88313-TC; 88342; 92611-TC; 94799-TC; A4606; C9113; J0456; J0696; J1630; J1650; J1815; J1885; J1940; J2405; J2543; J2765; J3480; J7030; J7040; J7042; J7050; J7060; J8597; Z7610